=== PATIENT | female | born 1995 | race Hispanic/Latino ===

== ENCOUNTER 2018-08-04 20:36 | Emergency (ER) | payer OTHER ==
[2018-08-04 21:30] LABS: #Eosinphils 0.1 thou/uL (0.0-0.7); White Blood Cell (WBC) Count 12.2 thou/uL (4.8-10.8)
[2018-08-04 21:37] LABS: Bilirubin Small (Negative); Blood, Urine Negative (Negative); Clarity Clear (Clear); Glucose, Urine (Dipstick) Negative (Negative); Leukocyte Trace (Negative); Nitrite Negative (Negative); Protein, Urine (Dipstick) 30 mg/dL (Neg-Trace); Specific Gravity, Urine 1.015 (1.005-1.030); Urobilinogen 0.2 mg/dL (0.2-1.0); pH, Urine 6.5 (5.0-9.0)
[2018-08-04 21:39] LABS: #Basophils 0.1 thou/uL (0.0-0.2); #Lymphocytes 0.4 thou/uL (1.20-3.40); #Monocytes 0.4 thou/uL (0.11-0.59); #Neutrophils 11.3 thou/uL (1.40-6.50); %Basophils 0.6 % (0.0-1.0); %Eosinophils 0.7 % (0.0-10.0); %Lymphocytes 3.4 % (21.0-51.0); %Monocytes 2.9 % (0.0-10.0); %Neutrophils 92.4 % (42.0-75.0); Mean Corpuscular HGB CONC 31.7 g/dL (32.0-36.0); Mean Corpuscular Hemoglobin 31.2 pg (27.0-31.0); Mean Corpuscular Volume 98.1 fL (78.0-98.0); Mean Platelet Volume 8.1 fL (7.4-10.4); Platelet Count 184 thou/uL (130-400); RBC Distribution Width 11.3 % (11.5-14.5); Red Blood Cell (RBC) Count 4.19 mill/uL (4.20-5.40)
[2018-08-04 21:43] LABS: Bacteria/HPF 2+ HPF (None Seen); Hyaline Casts/LPF 0-3 HYALINE CAST LPF (0-3 Hyaline); RBC/HPF 0-3 HPF (0-3)
[2018-08-04 21:44] LABS: Pregnancy Test - Urine (BHCG) Negative (Negative); Pregu Control Background? CLEAR/WHITE (CLR/WHITE); Pregu Control Bar Appear? YES (CONTROL BAR); Specific Gravity 1.015 (1.002-1.036)
[2018-08-04] MEDS ORDERED: Famotidine/PF 20 mg/2ml Vial ONE (21:46)
[2018-08-04] MEDS ORDERED: Ondansetron PF 4 MG/2 ML Vial ONE (21:46)
[2018-08-04] MEDS ORDERED: Lidocaine Viscous Sol 2% 15 ml UD Cup ONE (21:46)
[2018-08-04] MEDS ORDERED: Mag-Al Plus 1200 MG/1200 MG/120 MG/30 ML UDCUP ONE (21:46)
[2018-08-04 21:50] LABS: ALT (SGPT) 24 U/L (8-55); AST (SGOT) 17 U/L (5-34); Albumin 4.8 g/dL (3.5-5.0); Alkaline Phosphatase 46 U/L (40-150); Anion Gap 15 mmol/L (10-20); BUN (Urea Nitrogen) 14 mg/dL (7.0-18.7); Bilirubin, Total 1.3 mg/dL (0.2-1.2); Calc. Creatinine Clearance 0 mL/min (70-130); Calcium 9.8 mg/dL (7.8-10.44); Carbon Dioxide 22 mmol/L (22-29); Chloride 106 mmol/L (98-107); Estimated GFR-MDRD Greater than 90; Globulin 3.2 g/dL (2.4-3.5); Glucose 96 mg/dL (70-105); Lipase 15 U/L (8-78); Potassium 3.7 mmol/L (3.5-5.1); Sodium 139 mmol/L (136-145)
== END 2018-08-04 22:55 | disposition home or self-care (01) ==
LOC: SCSER 20:36
DX: R11.2 Nausea with vomiting, unspecified (principal); R19.7 Diarrhea, unspecified
CPT/HCPCS: 80053; 81003; 81015; 81025; 83690; 85025; 96361; 96374; 96375; J2405; S0028

== ENCOUNTER 2020-01-19 09:00 | Day surgery (SDC) | payer BC ==
[2020-01-19 09:42] VITALS: BP 108/63; TEMP 98.2; BMI 23.6
--- NOTE | 2020-01-19 10:06 | PDOC.LDHP ---
Labor and Delivery H&P Chief complaint: decreased movement HPI: 24 y/o G1 at 37w5d, patient of Dr. Blount, presents with decreased FM. She reports she has not felt the baby move for 2 days. Denies VB, LOF, or ctx. ROS neg for HEENT, cv, pulm, gi, gu, neuro, psych, skin, musculokeletal or constitutional symptoms other than mentioned above. OB History Details: First Current complications: none Past Medical History: None Current medications: pre-ciro vitamins, iron Previous surgical history: none Allergies/Adverse Reactions: Allergies Allergy/AdvReac Type Severity Reaction Status Date / Time No Known Allergies Allergy Verified 01/19/20 09:34 Social history: none - Physical Exam Vital signs reviewed and normal: yes General: NAD, resting Lungs: nonlabored breathing Abdomen: gravid Extremeties: no edema FHT: category 1 (130s, mod variability, + accels, ?late decels early - resolved) [place] contractions every: irregular - Vaginal Exam cm dilated: 2 Effacement: 50% Station: -3 - OB Labs Blood type: O RH: positive Antibody Screen: negative HIV: negative RPR: negative HEPSAg: negative 1 hour GCT: negative GBS: positive Rubella: immune - Assessment 24 y/o G1 at 37w5d with BPP 8/10, now feeling movement. Next appointment scheduled for . - Plan -: D/c home with precautions. Advised to keep appointments.
[2020-01-19] MEDS ORDERED: FLU VACC QS2020-21(6MOS UP)/PF 60 MCG/0.5 ML SYRINGE IM ONE (10:15)
--- NOTE | 2020-01-19 10:56 | ULT ---
ULTRASOUND BIOPHYSICAL PROFILE: DATE: 01/19/2020 HISTORY: 24-year-old female experiencing decreased movement FINDINGS: breathin tone: 2 movement: 2 Amniotic fluid volume: 2 heart rate: 153 bpm lie: Vertex Placenta: Posterior. No placenta previa. Maternal cervix: 4 cm and closed JOYCELYN: 8.5 cm IMPRESSION: Normal biophysical profile score of 6 out of 8, excluding the nonstress test.
== END 2020-01-19 11:33 | disposition home or self-care (01) ==
LOC: L&D/OP 09:00
PROVIDERS: ATTEND Obstetrics & Gynecology
DX: O36.8130 Decreased fetal movements, third trimester, not applicable or unspecified (principal); Z3A.37 37 weeks gestation of pregnancy
CPT/HCPCS: 76819

== ENCOUNTER 2020-01-28 05:44 | Day surgery (SDC) | payer BC, OTHER ==
[2020-01-28 06:19] VITALS: BMI 24.1
[2020-01-28] MEDS ORDERED: FLU VACC QS2020-21(6MOS UP)/PF 60 MCG/0.5 ML SYRINGE IM ONE (06:30)
[2020-01-28] MEDS ORDERED: hydrALAZINE 20 MG/ML VIAL SLOW IVP PRN (07:24)
--- NOTE | 2020-01-28 08:07 | HP ---
PRIMARY OB: Julio Blount DO, MS CHIEF COMPLAINT: Abdominal pains. HISTORY OF PRESENT ILLNESS: The patient is a 24-year-old G1, P0 female with an intrauterine at 39 weeks 0 day, presenting to Labor and Delivery with uterine contractions. She reports her contractions are about every 6-8 minutes. When she got here, she is unsure about where they are now. She reports she has been 2 cm for the last 2-1/2 to 3 weeks. The last time she was checked was about a week ago from Dr. Blount and reported her being 2 cm dilated. The patient denies fever, cough, headache, chest pain, shortness of breath. She has some nausea with contractions. Denies constipation. Denies vomiting. Denies diarrhea. Denies any new rashes. Denies hip problems, knee problems, or muscle weakness. Denies vaginal bleeding or leakage of fluid, urinary urgency or frequency. PAST MEDICAL HISTORY: Negative. PAST SURGICAL HISTORY: Negative. ALLERGIES: NO KNOWN DRUG ALLERGIES. MEDICATIONS: vitamins. SOCIAL HISTORY: Denies drug, alcohol, or tobacco use. OB LABS: Unavailable at time of dictation. REVIEW OF SYSTEMS: Per HPI. PHYSICAL EXAMINATION: VITAL SIGNS: Blood pressure is 104/69, heart rate of 77, respiratory rate of 18, and saturating 99% on room air. GENERAL: She appears to be in no acute distress. She is alert, oriented, cooperative, and pleasant to interact with. HEENT: Head is normocephalic and atraumatic. LUNGS: Clear to auscultation bilaterally. HEART: Has regular rate and rhythm. ABDOMEN: Gravid, soft, nontender. EXTREMITIES: Nontender, nonedematous. PELVIC: Cervical exam per nursing staff is 260 and -2 station. heart tracing shows the fetus with a baseline in the 130s with moderate long-term variability, positive 15 x 15 accelerations, no decelerations. Tocometer showing contractions about every 4-6 minutes. ASSESSMENT AND PLAN: The patient is a 24-year-old G1, P0 female with an intrauterine at 39 weeks gestation, here to rule out labor. The patient is having contractions. Cervical exam has been unchanged for last three weeks. The patient will be re-examined in about 2 to 3 hours from the time of her first exam today to evaluate for change of her cervix. Should there be no change, the patient will be discharged home. She does have followup appointment today at [address] Blount that we have encouraged to keep. Dr. Camarillo will be the oncoming physician when disposition is made. Job ID: [id number]
== END 2020-01-28 09:50 ==
LOC: L&D/OP 05:44
PROVIDERS: ATTEND Obstetrics & Gynecology
DX: O47.1 False labor at or after 37 completed weeks of gestation (principal); Z3A.39 39 weeks gestation of pregnancy; Z20.828 Contact with and (suspected) exposure to other viral communicable diseases

== ENCOUNTER 2020-01-28 15:53 | Inpatient (IN) | payer BC ==
[~2020-01-28 15:53] MED LIST: Lidocaine 2% MPF 10 ML AMP (For Epidural Use) ONE
[2020-01-28] MEDS: Lactated Ringer's 1,000 ML IV SCH ×2 (16:23→17:17)
[2020-01-28 16:50] VITALS: BMI 25.0
[2020-01-28] MEDS ORDERED: Fentanyl 4 mcg/Bup 0.1% Cadd 100 ML ONE (17:19)
[2020-01-28] MEDS ORDERED: Penicillin G Potassium 5 MILL.UNITS VIAL ONE (17:20)
[2020-01-28 17:27] LABS: Hemoglobin 12.1 g/dL (12.0-16.0); Mean Corpuscular HGB CONC 33.5 g/dL (32.0-36.0); Mean Corpuscular Hemoglobin 32.5 pg (27.0-31.0); Mean Corpuscular Volume 97.1 fL (78.0-98.0); Mean Platelet Volume 11.6 fL (7.4-10.4); Platelet Count 146 thou/uL (130-400); RBC Distribution Width 15.5 % (11.5-14.5); Red Blood Cell (RBC) Count 3.71 mill/uL (4.20-5.40); White Blood Cell (WBC) Count 8.3 thou/uL (4.8-10.8)
[2020-01-28] MEDS ORDERED: Penicillin G Potassium 2.5 MILL.UNITS in Sodium Chloride 0.9% 100 ML IVPB SCH (17:30)
[2020-01-28] MEDS ORDERED: Penicillin G Potassium 5 MILL.UNITS in Sodium Chloride 0.9% 100 ML IVPB SCH (17:30)
[2020-01-28] MEDS ORDERED: Ibuprofen 800 MG TAB PO PRN (17:30)
[2020-01-28] MEDS ORDERED: Misoprostol 200 MCG TAB RC PRN (17:30)
[2020-01-28] MEDS ORDERED: Carboprost 250 MCG/ML AMP IM PRN (17:30)
[2020-01-28] MEDS ORDERED: Methylergonovine 0.2 MG/ML VIAL IM PRN (17:30)
[2020-01-28] MEDS ORDERED: NS / Oxytocin 40 units/1000ml 1,000 ML IV SCH (17:30)
[2020-01-28] MEDS ORDERED: NS w/ Oxytocin 10 units 500 ML IV SCH ×2 (17:30)
[2020-01-28] MEDS ORDERED: Acetaminophen 325 MG TAB PO PRN (18:38)
[2020-01-28] MEDS ORDERED: diphenhydrAMINE 50 MG/ML VIAL IVP PRN (18:38)
[2020-01-28] MEDS ORDERED: Ondansetron PF 4 MG/2 ML Vial IVP PRN (18:38)
[2020-01-28] MEDS ORDERED: Promethazine HCl 25 MG/ML VIAL IM PRN (18:38)
[2020-01-28] MEDS ORDERED: Lactated Ringer's 500 ML IV PRN (18:38)
[2020-01-28] MEDS ORDERED: EPHEDRINE 25 MG/5 ML SYRINGE SLOW IVP PRN (18:38)
[2020-01-28] MEDS ORDERED: Naloxone HCl 0.4 mg/ml Vial IVP PRN ×2 (18:38)
[2020-01-28 18:43] LABS: HBSAg Index 0.16 S/CO (0-0.99); Hep B Surf Ag Non-Reactive S/CO (NonReactive); Syphilis Antibody Nonreactive (Nonreactive); Syphilis Antibody Index 0.03 S/CO (<1.00 Non-Reactive)
[2020-01-28] MEDS ORDERED: Communication Order-Pharmacy FS SCH (18:45)
[2020-01-28] MEDS ORDERED: Fentanyl 4 mcg/Bupivacaine 0.1% Cassette 100 ML EPIDURAL SCH (18:45)
[2020-01-28] MEDS: Penicillin G 2.5 MILL.units 2.5 MILL.UNITS in Premix Bag 1 BAG IVPB SCH (21:34)
[2020-01-29] MEDS ORDERED: Fentanyl 4 mcg/Bup 0.1% Cadd 100 ML ONE ×3 (00:22→12:38)
[2020-01-29] MEDS: Penicillin G 2.5 MILL.units 2.5 MILL.UNITS in Premix Bag 1 BAG IVPB SCH ×7 (05:33→21:08)
--- NOTE | 2020-01-29 08:57 | PDOC.LDPN ---
Labor & Delivery Progress Note - Subjective Subjective: comfortable - Objective Vital signs reviewed and normal: yes General: resting Dilation: 9 Effacement: 90% Station: -1 FHT: category 1 - Assessment (1) 39 weeks gestation of Code(s): Z3A.39 - 39 WEEKS GESTATION OF Current Visit: Yes Status: Acute Plan: continue plan of care -: Labor ??arrest of dilation/protracted labor vs. inaccurate exam at 0330. Will continue pitocin, position change and CS if arrest of labor is diagnosed.
[2020-01-29] MEDS ORDERED: FLU VACC QS2020-21(6MOS UP)/PF 60 MCG/0.5 ML SYRINGE IM ONE (09:00)
[2020-01-29] MEDS: Lactated Ringer's 1,000 ML IV SCH ×3 (10:42→21:07)
[2020-01-29 12:54] LABS: SARS-CoV-2 MS2 Positive; SARS-CoV-2 N Gene Negative; SARS-CoV-2 S Gene Negative; SARS-CoV-2 by NAA Not Detected (NotDetected); SARS-CoV-2 orf1ab Negative
--- NOTE | 2020-01-29 13:46 | PDOC.OPDEL ---
OB Operative/Delivery Note Delivery Dr/Surgeon: Jose Alejandro Pre-Delivery Diagnosis: active labor Procedure/Post Delivery Dx: spontaneous vaginal delivery Weeks gestation: 39 Anesthesia: epidural - Findings A Sex: female - 1 min: 8 - 5 min: 9 - Additional Findings/Plan Placenta delivered: spontaneous Repaired Obstetrical Laceration: 2nd degree Estimated blood loss: 300ml Compilations/Other Findings: loose nuchal, atony relived w pit and methergine x 1 Post delivery plan: routine recovery
[2020-01-29] MEDS ORDERED: diphenhydrAMINE 25 MG CAP PO PRN (13:47)
[2020-01-29] MEDS ORDERED: Lanolin Ointment 7 GM TUBE TOP PRN (13:47)
[2020-01-29] MEDS ORDERED: Preparation H Ointment 28 GM TUBE PR PRN (13:47)
[2020-01-29] MEDS ORDERED: Ondansetron PF 4 MG/2 ML Vial IVP PRN (13:47)
[2020-01-29] MEDS ORDERED: Milk Of Magnesia 30 ML UDCUP PO PRN (13:47)
[2020-01-29] MEDS ORDERED: Adacel (T-DAP) 0.5 ML SYRINGE IM ONE (13:47)
[2020-01-29] MEDS ORDERED: Bisacodyl 10 MG SUPP PR PRN (13:47)
[2020-01-29] MEDS ORDERED: HYDROcodone/Acetaminophen 5/325 mg Tablet PO PRN ×2 (13:47)
[2020-01-29] MEDS ORDERED: Promethazine HCl 25 MG/ML VIAL IM PRN (13:47)
[2020-01-29] MEDS ORDERED: hydrALAZINE 20 MG/ML VIAL SLOW IVP PRN (13:47)
[2020-01-29] MEDS ORDERED: Benzocaine-Menthol 82.5 ML CAN TOP PRN (13:47)
[2020-01-29] MEDS ORDERED: NS / Oxytocin 40 units/1000ml 1,000 ML IV SCH (14:00)
[2020-01-29] MEDS: Ferrous Sulfate 325 MG TAB PO SCH (20:01)
[2020-01-29] MEDS: Ibuprofen 800 MG TAB PO SCH ×2 (20:01→20:47)
[2020-01-29] MEDS: Docusate Calcium (SURFAK) 240 MG CAP PO SCH (20:47)
[2020-01-30] MEDS: Ibuprofen 800 MG TAB PO SCH ×3 (04:40→21:24)
[2020-01-30 05:42] LABS: Hemoglobin 10.5 g/dL (12.0-16.0)
--- NOTE | 2020-01-30 06:21 | PDOC.PP ---
Post Progress Note Post Day #: PPD1 Subjective: Resting, no c/o. PO intake tolerated: yes Vital Signs (12 hours) Temp Pulse Resp BP Pulse Ox 01/30/20 04:00 97.7 F 75 16 102/60 01/30/20 00:00 97.7 F 69 12 99/59 L 01/29/20 20:08 99.1 F 73 12 112/57 L 97 01/29/20 18:30 98.3 F 61 18 117/71 100 Weight Weight 66.224 kg - Physical Examination General: NAD Respiratory: non-labored breathing Neurological: no gross focal deficits Psychiatric: normal affect Result Diagrams: 01/30/20 05:23 Additional Labs: Post Labs Hep Bs Antigen Non-Reactive S/CO (NonReactive) 01/28/20 17:11 Blood Type O POSITIVE 01/28/20 18:59 - Assessment/Plan Doing well. Routine PP care. Anticipate home on 01/31/20
[2020-01-30] MEDS: Ferrous Sulfate 325 MG TAB PO SCH (07:12)
[2020-01-30] MEDS: Penicillin G 2.5 MILL.units 2.5 MILL.UNITS in Premix Bag 1 BAG IVPB SCH (07:12)
[2020-01-30] MEDS: Lactated Ringer's 1,000 ML IV SCH (07:13)
[2020-01-30] MEDS: Prenatal Vitamin 1 TAB PO SCH (08:14)
[2020-01-30] MEDS: Docusate Calcium (SURFAK) 240 MG CAP PO SCH ×2 (08:14→21:24)
[2020-01-31] MEDS: Penicillin G 2.5 MILL.units 2.5 MILL.UNITS in Premix Bag 1 BAG IVPB SCH ×2 (02:07→08:53)
[2020-01-31] MEDS: Lactated Ringer's 1,000 ML IV SCH ×2 (02:08→11:45)
[2020-01-31] MEDS: Ibuprofen 800 MG TAB PO SCH (04:48)
--- NOTE | 2020-01-31 05:49 | PDOC.PP ---
Post Progress Note Post Day #: 2 Subjective: Doing well PO intake tolerated: yes Flatus: yes Ambulation: yes Vital Signs (12 hours) Temp Pulse Resp BP Pulse Ox 01/30/20 20:31 98.5 F 78 16 109/62 96 Weight Weight 146 lb Vitals reviewed last 24 hrs - Physical Examination General: NAD Cardiovascular: no m/r/g Respiratory: non-labored breathing Abdominal: lochia, no distention, appropriately TTP Extremities: negative homans (B) Neurological: no gross focal deficits Psychiatric: A&Ox3, normal affect Result Diagrams: 01/30/20 05:23 Additional Labs: Post Labs Hep Bs Antigen Non-Reactive S/CO (NonReactive) 01/28/20 17:11 Blood Type O POSITIVE 01/28/20 18:59 (1) Vaginal delivery Code(s): O80 - ENCOUNTER FOR FULL-TERM UNCOMPLICATED DELIVERY Status: Acute - Assessment/Plan x2 doing well. OK for DC. Keep scheduled follow up. Vitals wnl
[2020-01-31] MEDS: Ferrous Sulfate 325 MG TAB PO SCH (08:45)
[2020-01-31] MEDS: Prenatal Vitamin 1 TAB PO SCH (08:49)
[2020-01-31] MEDS: Docusate Calcium (SURFAK) 240 MG CAP PO SCH (08:49)
[2020-01-31 10:08] VITALS: BP 108/61; TEMP 98.2
== END 2020-01-31 12:22 | disposition home or self-care (01) | DRG 807 ==
LOC: L&D/OP 15:53 → L&D 16:52 → 3SW 01-29 16:52
PROVIDERS: ADMIT Obstetrics & Gynecology; ATTEND Obstetrics & Gynecology
PROC: 10E0XZZ Delivery of Products of Conception, External Approach (ICD-10-PCS; principal; 2020-01-29)
PROC: 0KQM0ZZ Repair Perineum Muscle, Open Approach (ICD-10-PCS; 2020-01-29)
DX: O99.824 Streptococcus B carrier state complicating childbirth (principal); Z37.0 Single live birth; O69.81X0 Labor and delivery complicated by cord around neck, without compression, not applicable or unspecified; Z3A.39 39 weeks gestation of pregnancy; O70.1 Second degree perineal laceration during delivery
CPT/HCPCS: 36415; 51702; 85014; 85018; 85027; 86780; 86850; 86900; 86901; 87340; 87635; J2001; J2210; J2540; J2590; J3490; U0003